=== PATIENT | male | born 1980 | race Caucasian/White ===

== ENCOUNTER 2019-04-08 00:03 | Emergency (ER) | payer OTHER ==
[~2019-04-08] VITALS: Ht 165.1 cm; Wt 74.8 kg
[2019-04-08] MEDS ORDERED: TAMIFLU75 MG PO (01:01)
[2019-04-08 01:32] VITALS: BP 112/71
== END 2019-04-08 01:35 | disposition home or self-care (01) ==
LOC: ER 00:03
DX: J11.1 Influenza due to unidentified influenza virus with other respiratory manifestations (principal)